=== PATIENT | male | born 1975 | race African-American/Black ===

== ENCOUNTER 2022-01-08 13:13 | Emergency (ER) | payer OTHER ==
[2022-01-08 13:49] VITALS: BMI 32.3
[2022-01-08] MEDS ORDERED: BEBTELOVIMAB (EUA) 175 MG/2 ML VIAL IVPUSH ONE (14:17)
[2022-01-08] MEDS ORDERED: ACETAMINOPHEN 1000 MG/100 ML BAG IVPB ONE (14:18)
[2022-01-08] MEDS ORDERED: SODIUM CHLORIDE 0.9% 500 ML INFUS.BAG IV ONE (14:18)
[2022-01-08] MEDS ORDERED: ACETAMINOPHEN INJECTION 100 ML IVPB ONE (15:54)
[2022-01-08 17:24] VITALS: BP 121/75; PULSE 96; TEMP 98.7
== END 2022-01-08 17:48 | disposition home or self-care (01) ==
LOC: JER 13:13
PROC: 3E0333Z Introduction of Anti-inflammatory into Peripheral Vein, Percutaneous Approach (ICD-10-PCS; principal; 2022-01-08)
PROC: 3E03329 Introduction of Other Anti-infective into Peripheral Vein, Percutaneous Approach (ICD-10-PCS; 2022-01-08)
DX: U07.1 COVID-19 (principal)
CPT/HCPCS: 0241U-QW; 71046-TC-FY; 96374; 96375; 99284-25; M0222; Q0222